=== PATIENT | female | born 1935 | race Caucasian/White ===

== ENCOUNTER → 2017-01-23 | Outpatient (CLI) | payer OTHER ==
[2015-01-23 14:47] VITALS: BP 118/44
[~2017-01-23] MED LIST: ALBU2.5V14 NEB; ALPR0.5T6 PO; CIPR250T30 PO; CITA20TA5 PO; CYAN100T PO; FERR-26 PO; HYDR12.53 PO; LEVO75TA5 PO; LOSA100T6 PO; LOSA1TAB18 PO; MULT1TAB52 PO; NAPR220T70 PO; OMEG1CAP6 PO; PANT20TA2 PO; TACR100O2 TP; WARF-78 PO
--- NOTE | 2017-01-23 12:51 | EKG ---
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
--- NOTE | 2017-01-23 13:26 | RAD ---
EXAM: Chest 2 views. HISTORY: Preoperative risk factors. COMPARISON: 01/05/2015. FINDINGS: Frontal and lateral views of the chest are obtained. There are no confluent infiltrates. There is no pneumothorax or pleural effusion. The heart is not enlarged. Mild opacity at the left heart border is likely an epicardial fat pad. There is a correlate on the prior study given differences in projection. There are atherosclerotic calcifications of the aorta. Eventration of the right hemidiaphragm is noted. IMPRESSION: 1. No confluent infiltrates.
== END | disposition home or self-care (01) ==
LOC: SURGPAT 11:44
PROVIDERS: ATTEND Orthopaedic Surgery
DX: Z01.818 Encounter for other preprocedural examination (principal); I10 Essential (primary) hypertension
CPT/HCPCS: 71020; 87641; 93005

== ENCOUNTER → 2017-04-17 | Outpatient (CLI) | payer OTHER ==
[2015-01-23 14:47] VITALS: BP 118/44
[~2017-04-17] MED LIST changes: -LOSA1TAB18 PO; +LOSA1TAB25 PO; +OMEG100021 PO
== END | disposition home or self-care (01) ==
LOC: SURGPAT 13:39
PROVIDERS: ATTEND Orthopaedic Surgery
DX: M16.11 Unilateral primary osteoarthritis, right hip (principal); Z96.652 Presence of left artificial knee joint
CPT/HCPCS: 87641

== ENCOUNTER 2017-04-25 06:45 | Inpatient (IN) | payer OTHER ==
--- NOTE | 2017-04-24 12:00 | PDOC1 ---
History and Physical Date of Admission Date of Admission DATE: 04/25/17 Identification/Chief Complaint Chief Complaint left knee osteoarthritis pain Problems: Source Source: Chart review History of Present Illness History of Present Illness The patient is a 81 year old female with left knee pain. Her insurance did not authorize her left total knee arthroplasty in January. Since then, she has tried formal physical therapy and another cortisone injection by Dr. Esteban. The patient also has been doing home exercises. She states this helped some but she is still interested in a left total knee arthroplasty, as she is still in a lot of pain. She has a history of a right total knee arthroplasty in January 2015, which she states is her good knee. Past Medical History Cardiovascular: HTN, Hyperlipidemia Psych: Depression Past Surgical History Past Surgical History: Breast Biopsy, Cataract Removal, Hysterectomy Family History Family History: Cancer (breast), Chronic Bronchitis, Diabetes (type 1), Heart Disease, Hypertension, Migranes Social History Smoke: No ALCOHOL: none Drugs: None Current Medications Current Medications Active Scripts Active Reported Fish Oil 1,000 mg Softgel ([place]-3/Dha/Epa/Fish Oil) 1,000 Mg Capsule 2,000 Mg PO Hydrochlorothiazide Capsule (Hydrochlorothiazide) 12.5 Mg Capsule 1 Cap PO QODAY Losartan Potassium 100 Mg Tablet 100 Mg PO DAILY Citalopram Hbr (Citalopram Hydrobromide) 20 Mg Tablet 20 Mg PO DAILY Ferrous Sulfate 325 Mg Tablet 325 Mg PO EVERY DAY LAST DOSE GIVEN: DATE: 01/23 TIME: 9 am NEXT DOSE DUE: DATE: 01/23 TIME: 5 pm with dinner Multivitamins (Multivitamin) 1 Each Tablet 1 Each PO DAILY LAST DOSE GIVEN: DATE: 01/23 TIME: 9 am NEXT DOSE DUE: DATE: 01/24 TIME: 9 am Alprazolam 0.5 Mg Tablet 1 Mg PO HS PRN LAST DOSE GIVEN: DATE: 01/22 TIME: 9 pm NEXT DOSE DUE: DATE: 01/23 TIME: 9 pm Protonix (Pantoprazole Sodium) 20 Mg Tablet.dr 20 Mg PO DAILY LAST DOSE GIVEN: DATE: 01/23 TIME: 9 am NEXT DOSE DUE: DATE: 01/24 TIME: 7 am. Levothyroxine Sodium 75 Mcg Tablet 75 Mcg PO DAILYAC LAST DOSE GIVEN: DATE: 01/23 TIME: 9 am NEXT DOSE DUE: DATE: 01/24 TIME: 6 am Allergies Allergies: Coded Allergies: Jzssrvx-Kvt-Nuq Reductase Inhibitor (Verified Allergy, Intermediate, ) LEG MUSCLE ACHES Physical Exam General: Alert, Oriented X3, Cooperative, No acute distress HEENT: Atraumatic, EOMI Lungs: Clear to auscultation, Normal air movement Heart: RRR Abdomen: Soft Extremities: No clubbing, No cyanosis, Normal pulses, Other (LEFT KNEE: mildly antalgic gait. There is varus alignment. No masses. No detectable effusion. Tenderness on the medial and lateral joint lines. Range of motion is 2-125 degrees. There is crepitus with range of motion, and pain at the extremes of motion. The knee is stable to varus and valgus stress without subluxation or laxity. Muscle strength is normal (5/5) for quadriceps and hamstrings, and muscle tone is normal. The skin is normal with no scars, rashes, lesions or ulcers. Light touch sensation is intact. No edema and no varicosities. Dorsalis pedis pulse is intact and capillary refill is normal. ) Skin: No rashes, No breakdown, No significant lesion Neuro: Normal speech, Sensation intact Psych/Mental Status: Mental status NL, Mood NL Vitals Vitals Vital Signs Date Time Temp Pulse Resp B/P (MAP) Pulse Ox O2 Delivery O2 Flow Rate FiO2 04/17/17 14:14 97.6 68 16 94 97.6 VTE Prophylaxis Ordered VTE Prophylaxis Devices: Yes VTE Pharmacological Prophylaxi: Yes Assessment/Plan Assessment/Plan The patient did not have her total knee arthroplasty authorized in January, as she did not try enough conservative treatment. Since then, she completed formal physical therapy, a home exercise program, and another cortisone injection. Although these did give her some pain relief, she is still having severe pain and would like to proceed with a total knee arthroplasty. Due to her age, I recommended having surgery as soon as possible. We discussed the potential risks of infection, neurovascular injury, bleeding, blood clots, need for revision surgery, or other potential surgical or anesthetic complications. She denies any metal or nickel allergies. She will followup 10-14 days after surgery. LARISSA ANGEL Apr 24, 2017 12:00
[2017-04-25] VITALS (8 sets, daily range): BP systolic 106–141; BP diastolic 59–73
[~2017-04-25] VITALS: Ht 154.9 cm; Wt 89.4 kg
[~2017-04-25 06:45] MED LIST changes: +ACETAMINOPHEN 500 MG TABLET PO PRN; +CELECOXIB 200 MG CAPSULE. PO PRN; +MORPHINE SULFATE 5 MG, KETOROLAC 30 MG, ROPIVacaine 0.5% PF 60 ML, EPINEPHrine 0.5 MG i... INT ART ONE; +TRANEXAMIC ACID 1,000 MG in IV NS 50ML -- 1ST BAG INJ ONE; +VANCOMYCIN 1 GM VIAL. ONE
[2017-04-25] MEDS ORDERED: MORPHINE SULFATE 2 MG/ML DISP.SYRIN. IV PRN ×2 (07:00→12:15)
[2017-04-25] MEDS ORDERED: IV RINGERS,LACTATED 1000ML 1,000 ML IV SCH (07:00)
[2017-04-25] MEDS ORDERED: PROCHLORPERAZINE 10 MG/2 ML VIAL. IV PRN ×2 (07:00→12:15)
[2017-04-25] MEDS ORDERED: fentaNYL PF VIAL 100 MCG/2 ML VIAL IV PRN ×4 (07:00→12:15)
[2017-04-25] MEDS ORDERED: LIDOCAINE 1% PF 2 ML VIAL. ID PRN (07:00)
[2017-04-25] MEDS ORDERED: HYDROmorphone 2 MG/ML VIAL IV PRN (07:00)
[2017-04-25] MEDS ORDERED: CELE200C PO (07:23)
[2017-04-25] MEDS ORDERED: TRANEXAMIC ACID 1,000 MG in IV NS 50ML -- 2ND BAG INJ ONE (08:00)
[2017-04-25] MEDS ORDERED: fentaNYL PF VIAL 100 MCG/2 ML VIAL ONE ×2 (09:33→10:29)
[2017-04-25] MEDS ORDERED: MIDAZOLAM HCL/PF 2 MG/2 ML VIAL. ONE (09:33)
[2017-04-25 10:00] LABS: BILIRUBIN,URINE NEGATIVE (NEG); GLUCOSE,URINE NEGATIVE (NEG); NITRITE,URINE POSITIVE (NEG); PH,URINE 5.5; PROTEIN,URINE NEGATIVE (NEG-TRACE); UROBILINOGEN,URINE 0.2 mg/dL (0.2 mg/dL)
[2017-04-25 10:05] LABS: BACTERIA,URINE MANY /HPF (0-FEW); SQUAMOUS EPITHELIAL CELL,UR FEW /LPF
[2017-04-25 10:06] LABS: RBC,URINE 0 /HPF (0-2)
[2017-04-25] MEDS ORDERED: ONDANSETRON PF 4 MG/2 ML VIAL. ONE (10:06)
[2017-04-25] MEDS ORDERED: LIDOCAINE 2% PF Vial for OR 5 ML VIAL. ONE (10:06)
[2017-04-25] MEDS ORDERED: PROPOFOL 20 ML IV ONE (10:06)
[2017-04-25] MEDS ORDERED: FAMOTIDINE 20 MG/2 ML VIAL ONE (10:06)
[2017-04-25] MEDS ORDERED: DEXAMETHASONE SOD PHOS 20 MG/5 ML VIAL. ONE (10:06)
[2017-04-25] MEDS ORDERED: GLYCOPYRROLATE 1 MG/5 ML VIAL. ONE (10:08)
[2017-04-25] MEDS ORDERED: LABETALOL 20 MG/4 ML DISP.SYRIN. ONE (10:56)
[2017-04-25] MEDS ORDERED: NEOSTIGMINE 10 MG/10 ML VIAL. ONE (11:21)
[2017-04-25] MEDS ORDERED: SEVOFLURANE > 120 MINUTES. IH ONE (11:33)
--- NOTE | 2017-04-25 11:48 | PDOC4 ---
Operative Note Operative Note Date of Procedure: April 25, 2017 Pre-Op Diagnosis: Osteoarthritis left knee Post-Op Diagnosis: Osteoarthritis left knee Procedure: left total knee arthroplasty Surgeon: Quan Guzmán MD Pipe Smoker Machine Operator: Mildred James PA-C Anesthesia: General EBL: 100 mL Specimens Obtained: left knee bone and soft tissue Complications: none Implant Company: [employer] Drains: hemovac plus pain catheter Tourniquet time: 52 Minutes Tourniquet Pressure: 350 mm Hg Indications for Procedure: Arthritis pain unrelieved by nonoperative management. Findings: Severe osteoarthritis with bone on bone contact medially and at the patellofemoral joint Implants used: Size 3 left bicruciate stabilized Journey II BCS cobalt chrome femoral component, size 2 left Journey nonporous tibial baseplate, size 1 -2 18 mm left Journey II BCS XLPE articular insert, 32 mm oval Liz II resurfacing patellar component Procedure in Detail: The patient was identified in the preoperative holding area, and the correct left lower extremity was marked by me. The patient was taken to the operating room where the patient was anesthetized by the Department of Anesthesia. Preoperative antibiotics were given intravenously. Tranexamic acid 1 g was given intravenously for intraoperative hemostasis. A "time-out" procedure was performed. The patient was positioned supine on the operative table with a tourniquet on the upper left thigh. The left lower limb was thoroughly prepped and draped in sterile fashion. An impervious stockinet and adhesive drape were used such that the skin was entirely covered. An Valdivia leg hernandez was used. The operating team wore personal exhaust-ventilated hoods. The limb was elevated to exsanguinate it, and the tourniquet was inflated.. A midline skin incision was made with a scalpel using the patella and tibial tubercle as landmarks. Electrocautery was used for hemostasis. My resident programs assistant used rake retractors. A medial parapatellar arthrotomy incision was used with extension into the distal quadriceps tendon. The patella was retracted laterally and Hohmann retractors were now used by my resident programs assistant. Excess synovium, the menisci, and the cruciate ligaments were resected sharply. The patella was assessed and excess synovium and osteophytes around the patellar articulation were removed. The patella was measured with a caliper, cut freehand with a saw using caliper measurements, sized, and then drilled for an oval three-pegged patella component. Periarticular anesthetic injection was used in the suprapatellar pouch and distal quadriceps muscle. Whitesides's line and the transepicondylar axis were marked on the femur. An intra-medullary 5 degree cutting guide was pinned to the femur, and a distal femoral cut was made with an oscillating saw. An additional 2 mm resection was used due to the deep femoral sulcus, and deficient condyle. My resident programs assistant held Hohmann retractors and an Army-Cedar retractor to protect the medial and lateral collateral ligaments, the patellar tendon, the skin and the other soft tissues. An anterior referencing guide was applied with external rotation of 3 to match Whitesides line. A 5-in-1 Journey II cutting guide was then applied and pinned to the femur. The posterior, anterior, and all chamfer cuts were made with the oscillating saw. An extramedullary guide was pinned to the tibia and rotational alignment and the planned resection thickness assessed. An external alignment shilpa was used to verify the planned cut in the varus-valgus plane and regarding posterior slope referencing the tibial tubercle, the tibial shaft, the ankle joint, and the second metatarsal. The upper tibia was cut made with an oscillating saw. My resident programs assistant held Hohmann retractors and a posterior cruciate ligament retractor to protect the medial and lateral collateral ligaments, the patellar tendon, the skin, the peroneal nerve and the other soft tissues. The upper tibia was sized with a trial baseplate. The posterior compartment was cleared of osteophytes and loose bodies, and posterior capsule released. Periarticular anesthetic injection was used in the posterior compartment. The box cut for a posterior stabilized component was made. A preliminary reduction was performed with a trial femur, trial tibial baseplate and trial polyethylene. Soft-tissue balancing was now performed, and extension and rotation of the alignments was checked using a guide shilpa in the tibial trial and a guide pin in the femur. A medial release was required, using a 10 blade scalpel, and a Natarajan elevator to elevate the medial structures from the upper medial tibia. The stability was assessed using different thicknesses of tibial articular surface to find satisfactory stability and good range of motion. The rotation of the tibial component was marked on the upper tibia. Final trial reduction was now performed verifying patella tracking and tibiofemoral stability and alignment. The tibia preparation was completed with a drill, saw, and fin punch at the previously noted rotation. The final implants were verified and opened. Outer gloves were changed by the operating team. The bone cuts were washed thoroughly with the BizSlate InterPulse device and dried. Two packages of Sandoval + Nephew Rally HV bone cement were mixed in powdered form with 1 gm of Vancomycin, then vacuum-mixed with the monomer, and placed into a cement gun. The cut surfaces of the bone were thoroughly dried with Marquez-tip suction and with laparotomy sponges for cement interdigitation. The final components were cemented into place. The knee was kept at full extension while the cement hardened, and excess cement was removed. Tranexamic acid 1 g was redosed intravenously for additional intraoperative hemostasis. A final periarticular anesthetic injection was used for pain relief. The tourniquet was released, and electrocautery was used for hemostasis. A final check of dehcq-zt-nruprb and stability was made, and the polyethylene implant final size was chosen. The polyethylene implant was secured to the tibial baseplate, and the knee was reduced a final time. Thorough irrigation was used. Hemovac and pain catheter were used.The arthrotomy was closed with interrupted [id number]-[id number] #1 PDS suture. The arthrotomy incision was then run with #1 STRATAFIX Symmetric PDS Plus Knotless suture. The subcutaneous tissues were closed with #2-0 Vicryl by my resident programs assistant. The skin was approximated with STRATAFIX Spiral MONOCRYL Plus Knotless suture by my resident programs assistant. The skin incision was then covered and reinforced with Dermabond Prineo mesh skin closure dressing. A bulky sterile gauze dressing was applied. Needle and sponge counts were correct. There were no apparent complications. The patient returned to the recovery room in stable condition. QUAN GUZMÁN MD Apr 25, 2017 11:48
[2017-04-25] MEDS ORDERED: diphenhydrAMINE 50 MG/ML VIAL IV PRN (12:15)
[2017-04-25] MEDS ORDERED: ZOLPIDEM 5 MG TABLET. PO PRN (12:15)
[2017-04-25] MEDS ORDERED: HYDROcodone/APAP 7.5/325MG 1 TAB TABLET PO PRN (12:15)
[2017-04-25] MEDS ORDERED: MORPHINE SULFATE 10 MG/ML VIAL. IV PRN (12:15)
[2017-04-25] MEDS ORDERED: 0.9 % SODIUM CHLORIDE 10 ML DISP.SYRIN. IV PRN (12:15)
[2017-04-25] MEDS ORDERED: DEXTROSE 50% 25 GM / 50ML DISP.SYRIN. IV PRN (12:15)
[2017-04-25] MEDS ORDERED: traMADol 50 MG TABLET PO PRN ×2 (12:15)
[2017-04-25] MEDS ORDERED: ACETAMINOPHEN 325 MG TABLET. PO PRN (12:15)
[2017-04-25] MEDS ORDERED: HYDROcodone/APAP 10/325 1 TAB TABLET PO PRN (12:15)
[2017-04-25] MEDS ORDERED: PROCHLORPERAZINE 5 MG TABLET. PO PRN (12:15)
[2017-04-25] MEDS ORDERED: MORPHINE SULFATE 4 MG/ML DISP.SYRIN. IV PRN ×2 (12:15)
[2017-04-25] MEDS ORDERED: METOCLOPRAMIDE HCL 10 MG/2 ML VIAL. IV PRN (12:15)
[2017-04-25] MEDS ORDERED: CALCIUM CARBONATE 500 MG TAB.CHEW PO PRN (12:15)
--- NOTE | 2017-04-25 13:17 | RAD ---
Indication: Left knee arthroplasty. Technique: 2 views of the left knee are submitted for review. No comparison is available. Findings: Left knee arthroplasty is noted. Hardware is well seated. There is no perihardware lucency. There is no fracture or dislocation. There is surgical drain and soft tissue gas. There are vascular calcifications. Impression: Left knee arthroplasty without complication.
[2017-04-25] MEDS ORDERED: INSULIN ASPART 100 UNIT/ML 10ML VIAL. SQ ONE ×2 (13:21→13:30)
[2017-04-25] MEDS: IV DEXTROSE 5 %-0.45 % NACL 1,000 ML IV SCH (14:38)
[2017-04-25] MEDS: FERROUS SULFATE 325 MG TABLET. PO SCH (16:57)
[2017-04-25] MEDS: KETOROLAC 30 MG, BUPIVACAINE MPF 0.25% 20 ML, EPINEPHrine 0.5 MG in TOTAL VOLUME SYRING... INT ART SCH (16:57)
[2017-04-25] MEDS: oxyCODONE/APAP 5/325 1 TAB TABLET PO PRN ×2 (16:57→20:46)
[2017-04-25] MEDS: CELECOXIB 200 MG CAPSULE. PO SCH (20:45)
[2017-04-25] MEDS: ASPIRIN ENTERIC COATED 325 MG TABLET.DR. PO SCH (20:46)
[2017-04-25] MEDS: ALPRAZolam 0.5 MG TABLET PO PRN (21:56)
[2017-04-26 03:00] VITALS: BP 124/51
[2017-04-26] MEDS: IV DEXTROSE 5 %-0.45 % NACL 1,000 ML IV SCH (04:00)
[2017-04-26] MEDS: KETOROLAC 30 MG, BUPIVACAINE MPF 0.25% 20 ML, EPINEPHrine 0.5 MG in TOTAL VOLUME SYRING... INT ART SCH (05:56)
[2017-04-26] MEDS ORDERED: MAGNESIUM HYDROXIDE 2,400 MG/30 ML ORAL.SUSP. PO PRN (06:00)
[2017-04-26 07:00] VITALS: BP_SYST 135; BP_SYST 53; BP_DIAS 53
[2017-04-26] MEDS: PANTOPRAZOLE 40 MG TABLET.DR. PO SCH (07:24)
[2017-04-26] MEDS: LEVOTHYROXINE 75 MCG TABLET PO SCH (07:24)
[2017-04-26] MEDS: CITALOPRAM 20 MG TABLET. PO SCH (08:03)
[2017-04-26] MEDS: ASPIRIN ENTERIC COATED 325 MG TABLET.DR. PO SCH ×2 (08:03→21:13)
[2017-04-26] MEDS: SENNOSIDES/DOCUSATE 8.6/50MG TABLET. PO SCH (08:03)
[2017-04-26] MEDS: MULTIVITAMIN with MINERAL TABLET. PO SCH (08:03)
[2017-04-26] MEDS: CELECOXIB 200 MG CAPSULE. PO SCH ×2 (08:03→21:13)
[2017-04-26] MEDS: oxyCODONE/APAP 5/325 1 TAB TABLET PO PRN (08:04)
[2017-04-26] MEDS: FERROUS SULFATE 325 MG TABLET. PO SCH ×2 (08:04→15:57)
[2017-04-26 08:41] LABS: HEMATOCRIT 32.8 % (36.0-47.0); HEMOGLOBIN 10.5 g/dL (12.0-15.5)
[2017-04-26] MEDS: LOSARTAN POTASSIUM 50 MG TABLET. PO SCH (09:00)
[2017-04-26] MEDS: oxyCODONE/APAP 7.5/325 1 TAB TABLET PO PRN ×3 (12:36→19:09)
--- NOTE | 2017-04-26 12:37 | PDOC ---
PROGRESS NOTES Subjective Subjective Pain controlled. No complaints. Objective Vital Signs Vital Signs Date Time Temp Pulse Resp B/P (MAP) Pulse Ox O2 Delivery O2 Flow Rate FiO2 04/26/17 08:04 Room Air 04/26/17 07:00 98.6 73 18 135/53 (80) 95 98.6 04/25/17 15:40 2.0 Physical Exam Dressing intact and dry. Hemovac and pain catheter in place. Thigh and calf soft with a negative Jose's sign. Good active range of motion of foot including dorsiflexion and plantar flexion. No signs of compartment syndrome, DVT or neurovascular injury. Labs Laboratory Tests Test 04/25/17 09:02 04/25/17 09:43 04/25/17 13:11 04/25/17 20:58 Urine Collection Type Unknown Urine Color Yellow Urine Clarity Clear Urine pH 5.5 Urine Specific [place] 1.025 Urine Protein Negative mg/dL (NEG-TRACE) Urine Glucose (UA) Negative mg/dL (NEG) Urine Ketones (Stick) Negative mg/dL (NEG) Urine Blood Negative (NEG) Urine Nitrite Positive (NEG) Urine Bilirubin Negative (NEG) Urine Urobilinogen Dipstick 0.2 mg/dL (0.2 mg/dL) Urine Leukocyte Esterase Small (NEG) Urine RBC 0 /HPF (0-2) Urine WBC 5-10 /HPF (0-4) Urine Squamous Epithelial Cells Few /LPF Urine Bacteria Many /HPF (0-FEW) Urine Hyaline Casts Moderate /HPF Glucose (Fingerstick) 95 mg/dL (70-99) 164 mg/dL (70-99) 172 mg/dL (70-99) Test 04/26/17 06:52 04/26/17 08:30 04/26/17 11:06 Glucose (Fingerstick) 111 mg/dL (70-99) 114 mg/dL (70-99) Hemoglobin 10.5 g/dL (12.0-15.5) Hematocrit 32.8 % (36.0-47.0) Mean Corpuscular Hemoglobin Concent 32 g/dL (31-37) Laboratory Tests Test 04/25/17 13:11 04/25/17 20:58 04/26/17 06:52 04/26/17 08:30 Glucose (Fingerstick) 164 mg/dL (70-99) 172 mg/dL (70-99) 111 mg/dL (70-99) Hemoglobin 10.5 g/dL (12.0-15.5) Hematocrit 32.8 % (36.0-47.0) Mean Corpuscular Hemoglobin Concent 32 g/dL (31-37) Test 04/26/17 11:06 Glucose (Fingerstick) 114 mg/dL (70-99) Imaging Postop X-rays reviewed by me and show satisfactory total knee arthroplasty alignment, without apparent complications. Assessment Assessment POD 1 TKA Problems: Plan Plan of Care Continue POC including DVT prophylaxis and therapy. Dr. Guzmán saw and assessed the patient as well. LARISSA ANGEL Apr 26, 2017 12:37
[2017-04-26 15:00] VITALS: BP 120/60
[2017-04-26] MEDS ORDERED: BISACODYL 10 MG SUPP.RECT. PR PRN (16:00)
[2017-04-26 18:00] VITALS: BP 136/48
[2017-04-26 19:11] VITALS: BP 142/72
[2017-04-26] MEDS: ALPRAZolam 0.5 MG TABLET PO PRN (21:19)
[2017-04-27] MEDS: oxyCODONE/APAP 7.5/325 1 TAB TABLET PO PRN ×4 (02:35→20:49)
[2017-04-27 04:45] LABS: HEMATOCRIT 30.1 % (36.0-47.0); HEMOGLOBIN 9.9 g/dL (12.0-15.5)
[2017-04-27 05:47] VITALS: BP 117/55
[2017-04-27] MEDS: PANTOPRAZOLE 40 MG TABLET.DR. PO SCH (06:01)
[2017-04-27] MEDS: LEVOTHYROXINE 75 MCG TABLET PO SCH (06:01)
--- NOTE | 2017-04-27 08:02 | PDOC ---
PROGRESS NOTES Subjective Subjective Reports being sore this morning. Objective Vital Signs Vital Signs Date Time Temp Pulse Resp B/P (MAP) Pulse Ox O2 Delivery O2 Flow Rate FiO2 04/27/17 05:47 98.3 81 17 117/55 (75) 93 Room Air 98.3 04/25/17 15:40 2.0 Physical Exam Prineo mesh dressing intact with spotty drainage on ABD. Hemovac and pain catheter have been removed. Spotty drainage at drain site. Calf soft with mild tenderness to palpation. Negative Jose's sign. Good dorsiflexion and plantarflexion with no evidence of neurovascular injury. Peripheral pulses and light touch sensation intact. Labs Laboratory Tests Test 04/25/17 09:02 04/25/17 09:43 04/25/17 13:11 04/25/17 20:58 Urine Collection Type Unknown Urine Color Yellow Urine Clarity Clear Urine pH 5.5 Urine Specific [place] 1.025 Urine Protein Negative mg/dL (NEG-TRACE) Urine Glucose (UA) Negative mg/dL (NEG) Urine Ketones (Stick) Negative mg/dL (NEG) Urine Blood Negative (NEG) Urine Nitrite Positive (NEG) Urine Bilirubin Negative (NEG) Urine Urobilinogen Dipstick 0.2 mg/dL (0.2 mg/dL) Urine Leukocyte Esterase Small (NEG) Urine RBC 0 /HPF (0-2) Urine WBC 5-10 /HPF (0-4) Urine Squamous Epithelial Cells Few /LPF Urine Bacteria Many /HPF (0-FEW) Urine Hyaline Casts Moderate /HPF Glucose (Fingerstick) 95 mg/dL (70-99) 164 mg/dL (70-99) 172 mg/dL (70-99) Test 04/26/17 06:52 04/26/17 08:30 04/26/17 11:06 04/26/17 22:08 Glucose (Fingerstick) 111 mg/dL (70-99) 114 mg/dL (70-99) 143 mg/dL (70-99) Hemoglobin 10.5 g/dL (12.0-15.5) Hematocrit 32.8 % (36.0-47.0) Mean Corpuscular Hemoglobin Concent 32 g/dL (31-37) Test 04/27/17 04:35 Hemoglobin 9.9 g/dL (12.0-15.5) Hematocrit 30.1 % (36.0-47.0) Mean Corpuscular Hemoglobin Concent 33 g/dL (31-37) Laboratory Tests Test 04/26/17 08:30 04/26/17 11:06 04/26/17 22:08 04/27/17 04:35 Hemoglobin 10.5 g/dL (12.0-15.5) 9.9 g/dL (12.0-15.5) Hematocrit 32.8 % (36.0-47.0) 30.1 % (36.0-47.0) Mean Corpuscular Hemoglobin Concent 32 g/dL (31-37) 33 g/dL (31-37) Glucose (Fingerstick) 114 mg/dL (70-99) 143 mg/dL (70-99) Assessment Assessment POD #2 left TKA Problems: Plan Plan of Care Continue POC including DVT ppx and therapy. Plan for discharge tomorrow afternoon. The patient has been discussing SNF with social services manager and is deciding between PP and [facility]. LARISSA ANGEL Apr 27, 2017 8:02 am
[2017-04-27] MEDS: FERROUS SULFATE 325 MG TABLET. PO SCH ×2 (08:10→16:49)
[2017-04-27] MEDS: CELECOXIB 200 MG CAPSULE. PO SCH ×2 (08:10→20:49)
[2017-04-27] MEDS: MULTIVITAMIN with MINERAL TABLET. PO SCH (08:10)
[2017-04-27] MEDS: SENNOSIDES/DOCUSATE 8.6/50MG TABLET. PO SCH (08:10)
[2017-04-27] MEDS: CITALOPRAM 20 MG TABLET. PO SCH (08:10)
[2017-04-27] MEDS: ASPIRIN ENTERIC COATED 325 MG TABLET.DR. PO SCH ×2 (08:11→20:49)
[2017-04-27] MEDS: LOSARTAN POTASSIUM 50 MG TABLET. PO SCH (08:14)
[2017-04-27] MEDS ORDERED: hydroCHLOROthiazide 12.5 MG CAPSULE PO SCH (09:00)
--- NOTE | 2017-04-27 13:05 | PATHOLOGY ---
PATHOLOGY REPORT * * * * * * * * FINAL DIAGNOSIS: Segments of bone and soft tissue, left total knee arthroplasty: - Advanced degenerative arthritis. (JPM:mmrhonda; 04/27/2017) REPORT ELECTRONICALLY SIGNED BY: Reji Schreiber M.D. DATE/TIME: 04/27/2017 13:04 * * * * * * * * GROSS PATHOLOGY: Received in formalin labeled "Maddy Bell, left knee tissue," are multiple segments of bone, including tibial plateau, measuring 13.8 x 13.2 x 3.0 cm in aggregate dimensions admixed with soft tissue; meniscus is present. The specimen shows focal eburnation of the articular surfaces. Drag Car Racer sections of bone and soft tissue are submitted in cassette A1, following decalcification. (DAC; 04/26/2017) INITIAL CPT CODE(S): A; 12081, 53844 Professional services [place] [place] [address] Technical services performed by [facility] at [address] [place] [address], [place] [address]. SPECIMEN(S) RECEIVED: A.Left knee tissue CLINICAL HISTORY: Left knee OA PATIENT: MADDY BELL /AGE: 12 1935 (Age: 81) PATIENT #: [id number] ALT CASE #: SPECIMEN COLLECTION DATE: 04/25/2017 SPECIMEN RECEIVED DATE: 04/25/2017 [facility] - [address] [place] [address] - PHONE: [phone] * * * END OF REPORT * * *
[2017-04-27] MEDS ORDERED: POLYETHYLENE GLYCOL 3350 17 GM PACKET. PO PRN (15:45)
[2017-04-27 18:01] VITALS: BP 131/64
[2017-04-28] MEDS: oxyCODONE/APAP 7.5/325 1 TAB TABLET PO PRN ×2 (03:27→09:14)
[2017-04-28 06:05] LABS: HEMATOCRIT 29.6 % (36.0-47.0); HEMOGLOBIN 9.9 g/dL (12.0-15.5)
[2017-04-28] MEDS: LEVOTHYROXINE 75 MCG TABLET PO SCH (06:05)
[2017-04-28] MEDS: PANTOPRAZOLE 40 MG TABLET.DR. PO SCH (06:05)
[2017-04-28 06:07] VITALS: BP 135/68
[2017-04-28 08:00] VITALS: BP 118/57
[2017-04-28] MEDS: SENNOSIDES/DOCUSATE 8.6/50MG TABLET. PO SCH (08:07)
[2017-04-28] MEDS: CITALOPRAM 20 MG TABLET. PO SCH (08:07)
[2017-04-28] MEDS: CELECOXIB 200 MG CAPSULE. PO SCH (08:07)
[2017-04-28] MEDS: MULTIVITAMIN with MINERAL TABLET. PO SCH (08:07)
[2017-04-28] MEDS: ASPIRIN ENTERIC COATED 325 MG TABLET.DR. PO SCH (08:08)
[2017-04-28] MEDS: FERROUS SULFATE 325 MG TABLET. PO SCH (08:08)
[2017-04-28] MEDS: LOSARTAN POTASSIUM 50 MG TABLET. PO SCH (12:26)
--- NOTE | 2017-04-28 14:55 | PDOC ---
PROGRESS NOTES Subjective Subjective Doing well. Planning for discharge later today after PT. Objective Vital Signs Vital Signs Date Time Temp Pulse Resp B/P (MAP) Pulse Ox O2 Delivery O2 Flow Rate FiO2 04/28/17 12:26 84 139/59 04/28/17 09:14 Room Air 04/28/17 06:07 98.8 16 92 98.8 04/27/17 20:23 2.0 Physical Exam Expected swelling. Prineo dressing intact and dry. Calf soft and nontender. Negative Homans. Good AROM ankle. Peripheral pulses and light touch sensation intact. Labs Laboratory Tests Test 04/26/17 22:08 04/27/17 04:35 04/28/17 05:02 Glucose (Fingerstick) 143 mg/dL (70-99) Hemoglobin 9.9 g/dL (12.0-15.5) 9.9 g/dL (12.0-15.5) Hematocrit 30.1 % (36.0-47.0) 29.6 % (36.0-47.0) Mean Corpuscular Hemoglobin Concent 33 g/dL (31-37) 33 g/dL (31-37) Laboratory Tests Test 04/28/17 05:02 Hemoglobin 9.9 g/dL (12.0-15.5) Hematocrit 29.6 % (36.0-47.0) Mean Corpuscular Hemoglobin Concent 33 g/dL (31-37) Assessment Assessment POD 3 TKA Problems: Plan Plan of Care Discharge later today, [facility] Continue DVT prophylaxis and physical therapy. F/U 10-14 days. LARISSA ANGEL Apr 28, 2017 14:55
--- NOTE | 2017-04-28 14:55 | PDOC3 ---
Discharge Summary Visit Information Date of Admission: Apr 25, 2017 Date of Discharge: Apr 28, 2017 Admitting Diagnosis: left knee osteoarthritis pain Brief Hospital Course Allergies Allergies Coded Allergies Type Severity Reaction Last Updated Verified Piufrbz-Crc-Cpx Reductase Inhibitor Allergy Intermediate 04/25/17 Yes Vital Signs Vital Signs Date Time Temp Pulse Resp B/P (MAP) Pulse Ox O2 Delivery O2 Flow Rate FiO2 04/28/17 12:26 84 139/59 04/28/17 09:14 Room Air 04/28/17 06:07 98.8 16 92 98.8 04/27/17 20:23 2.0 Lab Results Laboratory Tests Test 04/26/17 22:08 04/27/17 04:35 04/28/17 05:02 Glucose (Fingerstick) 143 mg/dL (70-99) Hemoglobin 9.9 g/dL (12.0-15.5) 9.9 g/dL (12.0-15.5) Hematocrit 30.1 % (36.0-47.0) 29.6 % (36.0-47.0) Mean Corpuscular Hemoglobin Concent 33 g/dL (31-37) 33 g/dL (31-37) Laboratory Tests Test 04/28/17 05:02 Hemoglobin 9.9 g/dL (12.0-15.5) Hematocrit 29.6 % (36.0-47.0) Mean Corpuscular Hemoglobin Concent 33 g/dL (31-37) Brief Hospital Course 81 year old who presented with knee osteoarthritis, for elective total knee arthroplasty. The patient underwent total knee arthroplasty under general anesthesia the day of admission. Perioperative antibiotics and DVT prophylaxis were used. Postoperatively physical therapy and case management were consulted. The patient progressed and is stable for discharge. Discharge Information Condition at Discharge: Stable Follow Up: Weeks (2) Disposition/Orders: D/C to Another Facility ([facility] of ) Scheduled Celecoxib (Celebrex), 2 CAP PO DAILY, (Reported) Citalopram Hydrobromide (Citalopram Hbr), 20 MG PO DAILY, (Reported) Ferrous Sulfate (Ferrous Sulfate), 325 MG PO EVERY DAY, (Reported) Hydrochlorothiazide (Hydrochlorothiazide Capsule ), 1 CAP PO QODAY, (Reported ) Levothyroxine Sodium (Levothyroxine Sodium), 75 MCG PO DAILYAC, (Reported) Losartan Potassium (Losartan Potassium), 100 MG PO DAILY, (Reported) Multivitamin (Multivitamins), 1 EACH PO DAILY, (Reported) Pantoprazole Sodium (Protonix), 20 MG PO DAILY, (Reported) Scheduled PRN Alprazolam (Alprazolam), 1 MG PO HS PRN for ANXIETY / AGITATION, (Reported) Miscellaneous Medications [place]-3/Dha/Epa/Fish Oil (Fish Oil 1,000 mg Softgel), 2,000 MG PO, (Reported) Patient Instructions Patient Instructions Patient Instructions Continue to WBAT with walker. Keep dressing dry and intact. F/U with [facility] in 10-14 days. Call for appointment. Physical therapy for TKA Continue DVT prophylaxis. LARISSA ANGEL Apr 28, 2017 14:55
[2017-04-28 15:01] VITALS: BP 135/66
== END 2017-04-28 15:25 | DRG 470 ==
LOC: OPSVCIP 06:45 → 4 SOUTHEST 14:13
PROVIDERS: ADMIT Orthopaedic Surgery; ATTEND Orthopaedic Surgery
PROC: 0SRD0J9 Replacement of Left Knee Joint with Synthetic Substitute, Cemented, Open Approach (ICD-10-PCS; principal; 2017-04-25 09:10)
DX: M17.12 Unilateral primary osteoarthritis, left knee (principal); E78.5 Hyperlipidemia, unspecified; F32.9 Major depressive disorder, single episode, unspecified; I10 Essential (primary) hypertension; Z90.710 Acquired absence of both cervix and uterus; Z80.3 Family history of malignant neoplasm of breast; Z82.49 Family history of ischemic heart disease and other diseases of the circulatory system; Z82.5 Family history of asthma and other chronic lower respiratory diseases; Z83.3 Family history of diabetes mellitus
CPT/HCPCS: 36415; 73560; 81001; 82962; 85014; 85018; 86850; 86870; 86900; 86901; 86902; 86922; 87086; 87186; 88305; 88311; C1713; J0171; J0690; J1100; J1815; J1885; J2250; J2270; J2405; J2704; J2710; J2795; J3010; J3370; J3490; J7030; J7120; S0028; 97110; 97116; 97150; 97530; 97535; C1769; J2001

== ENCOUNTER → 2017-12-19 | Outpatient (CLI) | payer OTHER | END | disposition home or self-care (01) | LOC: MRI 14:59 | DX: M51.36 Other intervertebral disc degeneration, lumbar region (principal); M48.07 Spinal stenosis, lumbosacral region; G89.29 Other chronic pain | CPT/HCPCS: 72148 ==

== ENCOUNTER → 2018-03-20 | Outpatient (CLI) | payer OTHER ==
[2018-02-15 10:46] VITALS: BP 174/78
[~2018-03-20] MED LIST changes: -ACETAMINOPHEN 500 MG TABLET PO PRN; +AMOX1TAB10 PO; +CALC3.7S5 NS; +CELE200C PO; -CELECOXIB 200 MG CAPSULE. PO PRN; -CITA20TA5 PO; +CITA20TA6 PO; +DEXA4TAB63 PO; +DOCU-109 PO; -FERR-26 PO; +FERR325T14 PO; +GABA300C8 PO; +IOHEXOL 240 MG/ML 50ML VIAL. PO ONE; +IOHEXOL 300 MG/ML 100ML VIAL. IV ONE; -LOSA100T6 PO; +LOSA100T7 PO; -MORPHINE SULFATE 5 MG, KETOROLAC 30 MG, ROPIVacaine 0.5% PF 60 ML, EPINEPHrine 0.5 MG i... INT ART ONE; +NAPR220C4 PO; +ONDA4TAB10 SL; +PSYL0.5215 PO; +SULF1TAB24 PO; +TIZA2TAB PO; -TRANEXAMIC ACID 1,000 MG in IV NS 50ML -- 1ST BAG INJ ONE; -VANCOMYCIN 1 GM VIAL. ONE
--- NOTE | 2018-03-20 09:48 | KCIC ---
PQRS Compliance Statement: One or more of the following individualized dose reduction techniques were utilized for this examination: 1. Automated exposure control 2. Adjustment of the mA and/or kV according to patient size 3. Use of iterative reconstruction technique CT abdomen/pelvis with contrast 03/20/2018 9:30 AM INDICATION: Right upper quadrant and right lower quadrant pain. Pain and nausea for 4 months. COMPARISON: CT abdomen/pelvis December 26, 2017 TECHNIQUE: Multiple axial CT images of the abdomen and pelvis were obtained after the intravenous administration of 100 mL Omnipaque 300. Coronal and sagittal reformats are provided. FINDINGS: There is subsegmental atelectasis in the right middle lobe. There is a groundglass nodule measuring 5 mm in the right middle lobe. Heart size is within normal limits. Hypoattenuation of the hepatic parenchyma suggestive of underlying hepatic steatosis. No suspicious hepatic lesion is visualized. The spleen is nonenlarged. Adrenal glands are normal in appearance. There is mild fatty atrophy of the pancreas. Gallbladder is present without adjacent inflammatory changes. Abdominal aorta is normal in course and caliber with advanced atherosclerotic calcifications. Moderate calcification is identified involving the proximal superior mesenteric artery. There are no pathologically enlarged lymph nodes in abdomen or pelvis. There is no free fluid or free intraperitoneal air. Simple appearing renal cysts are identified in the left kidney measuring up to 2.1 cm. Simple appearing renal cysts are identified in the right kidney measuring up to 4.5 cm in the lateral midpole. These findings are not significantly changed since the prior examination. The kidneys enhance symmetrically. There is no suspicious renal mass. There is no hydronephrosis. There are no suspected calculi within the kidneys, ureters or urinary bladder. There is moderate sigmoid diverticulosis. No adjacent inflammatory changes are identified. Moderate amount of stool is noted throughout the colon. Oral contrast was administered. Opacified bowel loops demonstrate normal mucosal fold pattern. Small and large bowel are normal in caliber. There is no evidence for bowel obstruction. There are no pericolonic inflammatory changes. A normal, nondilated appendix is visualized without adjacent inflammatory changes. Urinary bladder is within normal limits given degree of distention. No suspicious pelvic mass is identified. Treated chronic compression fractures identified at T10. There is a compression deformity involving T9 with approximately 50 percent height loss, new from prior examination from December 26, 2017. There is no associated retropulsion. IMPRESSION: 1. New compression deformity involving T9 with approximately 50 percent height loss and no significant retropulsion. 2. Treated compression deformity of T10 with 75 percent height loss. Mild retropulsion identified at this level, chronic. 3. New 5 mm groundglass nodule in the right middle lobe is favored to be infectious/inflammatory. 4. Diffuse hepatic steatosis. 5. Moderate sigmoid diverticulosis without adjacent plantar changes. Electronically signed by: Kinza Main MD (03/20/2018 9:44 AM) [email or web address]
== END | disposition home or self-care (01) ==
LOC: KCIC CT 07:59
PROVIDERS: ATTEND Family Medicine
DX: K57.30 Diverticulosis of large intestine without perforation or abscess without bleeding (principal); K76.0 Fatty (change of) liver, not elsewhere classified; R91.1 Solitary pulmonary nodule; M43.8X4 Other specified deforming dorsopathies, thoracic region; I70.0 Atherosclerosis of aorta; I10 Essential (primary) hypertension; E11.9 Type 2 diabetes mellitus without complications; E55.9 Vitamin D deficiency, unspecified; I12.9 Hypertensive chronic kidney disease with stage 1 through stage 4 chronic kidney disease, or unspecified chronic kidney disease; E11.22 Type 2 diabetes mellitus with diabetic chronic kidney disease; N18.3 Chronic kidney disease, stage 3 (moderate); E78.00 Pure hypercholesterolemia, unspecified; K21.9 Gastro-esophageal reflux disease without esophagitis; E03.9 Hypothyroidism, unspecified; Z96.653 Presence of artificial knee joint, bilateral; Z87.440 Personal history of urinary (tract) infections; Z90.710 Acquired absence of both cervix and uterus; Z83.3 Family history of diabetes mellitus; Z82.49 Family history of ischemic heart disease and other diseases of the circulatory system; Z80.3 Family history of malignant neoplasm of breast; Z82.5 Family history of asthma and other chronic lower respiratory diseases
CPT/HCPCS: 74177; Q9966; Q9967

== ENCOUNTER → 2018-03-26 | Outpatient (CLI) | payer OTHER ==
[2018-02-15 10:46] VITALS: BP 174/78
[~2018-03-26] MED LIST changes: +AMLO2.5T3 PO; -IOHEXOL 240 MG/ML 50ML VIAL. PO ONE; -IOHEXOL 300 MG/ML 100ML VIAL. IV ONE; +METF500T16 PO; +POLY17PO29 PO; +TRAM50TA PO; +TRAZ-86 PO
--- NOTE | 2018-03-26 12:31 | RAD ---
MRI Thoracic Spine without contrast History: Worsening chronic pain, history of vertebroplasty Technique: Multiplanar, multi sequential noncontrast MR imaging was performed of the thoracic spine. Contrast: None Comparison: December 27, 2017 Findings: There has been vertebroplasty at T9 as seen previously (previously called T10 although is T9 based on counting from above). There has been development of T8 compression fracture with edema signified by STIR hyperintense and T1 hypointense signal without osseous retropulsion. There is old mild superior endplate conconcavity of T3. Thoracic cord caliber is within normal limits without focal signal abnormality. There is no new significant thoracic spinal stenosis. There are shallow posterior protrusions at T6-T7 and T2-3. There is again some narrowing of the right T9-10 neural foramen. Impression: 1. There has been vertebroplasty at T9 (previously called T10). There is new T8 compression fracture. Electronically signed by: Tarik rFanco MD (03/26/2018 12:28 PM) [email or web address]
== END | disposition home or self-care (01) ==
LOC: MRI 09:58
PROVIDERS: ATTEND Surgery
DX: M48.54XA Collapsed vertebra, not elsewhere classified, thoracic region, initial encounter for fracture (principal); M81.0 Age-related osteoporosis without current pathological fracture; I12.9 Hypertensive chronic kidney disease with stage 1 through stage 4 chronic kidney disease, or unspecified chronic kidney disease; N18.3 Chronic kidney disease, stage 3 (moderate); E11.22 Type 2 diabetes mellitus with diabetic chronic kidney disease; E11.65 Type 2 diabetes mellitus with hyperglycemia; E78.5 Hyperlipidemia, unspecified; E78.00 Pure hypercholesterolemia, unspecified; M16.0 Bilateral primary osteoarthritis of hip; M17.12 Unilateral primary osteoarthritis, left knee; F32.9 Major depressive disorder, single episode, unspecified; K21.9 Gastro-esophageal reflux disease without esophagitis; F41.9 Anxiety disorder, unspecified; Z82.49 Family history of ischemic heart disease and other diseases of the circulatory system; Z80.3 Family history of malignant neoplasm of breast; Z80.9 Family history of malignant neoplasm, unspecified; Z83.3 Family history of diabetes mellitus; Z82.5 Family history of asthma and other chronic lower respiratory diseases; Z90.710 Acquired absence of both cervix and uterus; Z98.49 Cataract extraction status, unspecified eye; Z88.2 Allergy status to sulfonamides; Z88.8 Allergy status to other drugs, medicaments and biological substances
CPT/HCPCS: 72146

== ENCOUNTER 2018-04-03 08:19 | Outpatient (CLI) | payer OTHER ==
[2018-04-03] VITALS (10 sets, daily range): BP systolic 164–196; BP diastolic 59–89
[~2018-04-03] VITALS: Ht 154.9 cm; Wt 83.5 kg
[2018-04-03] MEDS ORDERED: LIDOCAINE WITH 8.4% SOD BICARB 3 ML DISP.SYRIN. ONE ×3 (08:20→10:21)
[2018-04-03] MEDS ORDERED: IOHEXOL 240 MG/ML 50ML VIAL. ONE (08:20)
[2018-04-03 09:05] LABS: BASO # 0.1 x10^3/uL (0.0-0.2); BASO % 1 % (0-3); EOS # 0.6 x10^3/uL (0.0-0.7); EOS % 9 % (0-3); HEMATOCRIT 35.1 % (36.0-47.0); HEMOGLOBIN 11.9 g/dL (12.0-15.5); LYMPH # 1.5 x10^3/uL (1.0-4.8); LYMPH % 24 % (24-48); MEAN CORPUSCULAR HEMOGLOBIN 31 pg (25-35); MEAN CORPUSCULAR HGB CONC 34 g/dL (31-37); MEAN CORPUSCULAR VOLUME 90 fL (79-100); MONO # 0.6 x10^3/uL (0.0-1.1); MONO % 10 % (0-9); NEUT # 3.6 x10^3uL (1.8-7.7); NEUT % 56 % (31-73); PLATELET COUNT 270 x10^3/uL (140-400); RED BLOOD COUNT 3.89 x10^6/uL (3.50-5.40); RED CELL DISTRIBUTION WIDTH 15.3 % (11.5-14.5); WHITE BLOOD COUNT 6.5 x10^3/uL (4.0-11.0)
[2018-04-03 09:16] LABS: PROTHROMBIN TIME PATIENT 12.6 SEC (11.7-14.0)
[2018-04-03] MEDS ORDERED: fentaNYL PF VIAL 100 MCG/2 ML VIAL ONE ×2 (09:31→10:02)
[2018-04-03] MEDS ORDERED: MIDAZOLAM HCL/PF 2 MG/2 ML VIAL. ONE ×2 (09:31→10:02)
[2018-04-03] MEDS ORDERED: fentaNYL PF VIAL 100 MCG/2 ML VIAL IV ONE (10:45)
[2018-04-03] MEDS ORDERED: MIDAZOLAM HCL/PF 2 MG/2 ML VIAL. IV ONE (10:45)
[2018-04-03] MEDS ORDERED: LIDOCAINE WITH 8.4% SOD BICARB 3 ML DISP.SYRIN. IJ ONE (10:45)
--- NOTE | 2018-04-03 13:08 | RAD ---
T8 vertebroplasty 04/03/2018 Indication: T8 compression fracture. Discussion: Patient is an 82-year-old female status post T9 compression fracture with vertebral augmentation tube presents with recurrent mid back pain secondary to T8 compression fracture. Fracture is pathologic secondary to bone demineralization as evidence by mechanism of injury. Patient has persistent pain despite conservative treatment measures. Notably the patient has 11 rib bearing type vertebra. For the purposes of this report the eighth rib bearing vertebral referred to as T8. The risks and benefits of the procedure were discussed the patient. The patient was brought to the fluoroscopy suite and placed in the prone position. A timeout procedure was performed. The posterior thorax prepped and draped using sterile barrier technique. All elements of maximal sterile barrier technique including the use of a cap, mask, sterile gown, sterile gloves, large sterile sheet, appropriate hand hygiene, and 2% chlorhexidine for cutaneous antisepsis (or acceptable alternative antiseptic per current guidelines) were followed for this procedure. The overlying skin and subcutaneous tissues were anesthetized with 1% lidocaine. A trocar needle was introduced into the posterior vertebral body using a left transpedicular approach. A curved cement delivery needle was advanced to the contralateral body. Bone cement was slowly instilled into the vertebral body. Adequate filling of the contralateral vertebral body was noted. Therefore a right transpedicular trocar needle was placed in an essentially identical fashion. A second cement delivery needle was advanced into the right vertebral body. Adequate filling of the vertebral body was then achieved. Some extravasation of cement into the disc space, at T8-T9, large containing cement, was noted. Gifford were removed and manual pressure held to achieve hemostasis. The patient told the procedure well. Sterile dressings were applied. Patient was transferred to the recovery unit in stable condition. Fluoroscopy time: 17.6 minutes Dose area product: [id number] The procedures performed under conscious sedation including continuous cardiopulmonary monitoring via a dedicated sedation nurse. [id number] sedation time: one hour Impression: T8 vertebroplasty
== END 2018-04-03 13:30 | disposition home or self-care (01) ==
LOC: INTRAD 08:19
PROVIDERS: ATTEND Radiology Diagnostic Radiology
DX: S22.060A Wedge compression fracture of T7-T8 vertebra, initial encounter for closed fracture (principal); M54.6 Pain in thoracic spine; Z79.01 Long term (current) use of anticoagulants; Z88.8 Allergy status to other drugs, medicaments and biological substances; X58.XXXA Exposure to other specified factors, initial encounter; Y93.89 Activity, other specified; Y92.89 Other specified places as the place of occurrence of the external cause; Y99.8 Other external cause status
CPT/HCPCS: 22510; 36415; 85025; 85610; 99152; 99153; C1725; C1892; J0690; J2250; J3010

== ENCOUNTER → 2018-06-28 | Outpatient (CLI) | payer OTHER ==
[2018-04-03 12:45] VITALS: BP 172/80
[~2018-06-28] MED LIST changes: +ALPR1TAB6 PO; -AMLO2.5T3 PO; +AMLO2.5T5 PO; -CYAN100T PO; +CYAN100T2 PO; +DOCU100C28 PO; +GABA300C18 PO; -GABA300C8 PO; -HYDR12.53 PO; +HYDR12.575 PO; +LOSA100T14 PO; -LOSA100T7 PO; +OXYB5TAB7 PO; +TRAZ150T49 PO
--- NOTE | 2018-06-28 17:06 | RAD ---
MRI Thoracic Spine without contrast History: Worsening back pain, previous compression fractures Technique: Multiplanar, multi sequential noncontrast MR imaging was performed of the thoracic spine. Comparison: March 26, 2018 Findings: There again has been vertebroplasty at T9, interval vertebroplasty at T8, some residual mild amorphous edema more anteriorly of T8. Vertebral body stature is overall similar, no evidence of new thoracic compression fracture. There is old superior T3 and T1 endplate concavity. Thoracic cord caliber is within normal limits. There could be some subtle T2 hyperintense signal of the cord at T9-10. There is mild osseous retropulsion inferiorly of T9 with mild indentation upon the ventral thecal sac as seen previously, partial effacement of ventral subarachnoid space overall unchanged. There is no new osseous retropulsion of T8. There is again shallow posterior protrusion T6-7, also negligible posterior protrusion T2-3 as seen previously. There is no new significant thoracic spinal stenosis. There is again large hemangioma of the T5 vertebral body. Facet degenerative change and height loss contributes to moderate bilateral T9-10 neural foramina compromise, mild narrowing on the right at T8-T9. As seen at the superior aspect of exam, there is degenerative disc disease and spondylosis and disc osteophyte complex C6-7, central canal stenosis estimated about 6 mm. Impression: 1. There has been interval vertebroplasty at T8, some residual mild amorphous edema more anteriorly of the vertebral body although otherwise vertebral body stature similar, no evidence of new thoracic compression fracture. There is a similar degree of mild osseous retropulsion of T9 with mild indentation upon the ventral thecal sac. There is possible subtle cord signal abnormality T9-T10, could be due to mild cord edema or myelomalacia. There is bilateral T9-T10 neural foramina compromise. 2. As seen at the superior aspect of exam, there is cervical degenerative disc disease and spondylosis, spinal stenosis C6-7 estimated about 6 mm. Electronically signed by: Tarik Franco MD (06/28/2018 5:02 PM) [id number]
== END | disposition home or self-care (01) ==
LOC: MRI 14:45
PROVIDERS: ATTEND Surgery
DX: M50.323 Other cervical disc degeneration at C6-C7 level (principal); M48.02 Spinal stenosis, cervical region; M47.812 Spondylosis without myelopathy or radiculopathy, cervical region; M25.78 Osteophyte, vertebrae; M48.54XD Collapsed vertebra, not elsewhere classified, thoracic region, subsequent encounter for fracture with routine healing; Z98.890 Other specified postprocedural states
CPT/HCPCS: 72146

== ENCOUNTER 2018-10-19 17:20 | Inpatient (IN) | payer OTHER ==
[~2018-10-19] VITALS: Ht 154.9 cm; Wt 89.1 kg
[~2018-10-19 17:20] MED LIST changes: -ALPR1TAB6 PO; -DOCU100C28 PO; -OXYB5TAB7 PO; -TRAZ150T49 PO
[2018-10-19] MEDS ORDERED: IV NORMAL SALINE 1000ML BAG 1,000 ML IV SCH (17:41)
[2018-10-19] MEDS ORDERED: ONDANSETRON PF 4 MG/2 ML VIAL. IV ONE (17:45)
[2018-10-19] MEDS: MORPHINE SULFATE 4 MG/ML VIAL. IV/SQ PRN ×2 (18:00→21:40)
[2018-10-19 18:01] LABS: BASO % 0 % (0-3); EOS # 0.2 x10^3/uL (0.0-0.7); EOS % 2 % (0-3); HEMATOCRIT 38.5 % (36.0-47.0); HEMOGLOBIN 12.7 g/dL (12.0-15.5); LYMPH # 1.1 x10^3/uL (1.0-4.8); LYMPH % 12 % (24-48); MEAN CORPUSCULAR HEMOGLOBIN 28 pg (25-35); MEAN CORPUSCULAR HGB CONC 33 g/dL (31-37); MEAN CORPUSCULAR VOLUME 85 fL (79-100); MONO # 0.6 x10^3/uL (0.0-1.1); MONO % 6 % (0-9); NEUT # 7.4 x10^3uL (1.8-7.7); NEUT % 80 % (31-73); PLATELET COUNT 248 x10^3/uL (140-400); RED BLOOD COUNT 4.53 x10^6/uL (3.50-5.40); RED CELL DISTRIBUTION WIDTH 15.1 % (11.5-14.5); WHITE BLOOD COUNT 9.4 x10^3/uL (4.0-11.0)
[2018-10-19 18:12] LABS: PROTHROMBIN TIME PATIENT 12.5 SEC (11.7-14.0)
[2018-10-19 18:15] LABS: CALCIUM 9.1 mg/dL (8.5-10.1); CREATININE 0.8 mg/dL (0.6-1.0); GFR 68.8; POTASSIUM 4.2 mmol/L (3.5-5.1)
[2018-10-19 18:21] LABS: ALBUMIN 4.1 g/dL (3.4-5.0); ALBUMIN/GLOBULIN RATIO 1.1 (1.0-1.7); TOTAL BILIRUBIN 0.2 mg/dL (0.2-1.0); TOTAL PROTEIN 7.7 g/dL (6.4-8.2)
[2018-10-19] MEDS ORDERED: CONTRAST GIVEN. MC PRN (18:45)
[2018-10-19] MEDS ORDERED: IOHEXOL 300 MG/ML 100ML VIAL. IV ONE ×2 (18:45→20:15)
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
[2018-10-19] MEDS ORDERED: IV NORMAL SALINE 1000ML BAG 1,000 ML IV ONE (20:00)
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
[2018-10-19 20:10] LABS: BILIRUBIN,URINE NEGATIVE (NEG); CLARITY,URINE CLEAR; COLOR,URINE YELLOW; NITRITE,URINE NEGATIVE (NEG); PROTEIN,URINE NEGATIVE (NEG-TRACE); UROBILINOGEN,URINE 0.2 mg/dL (0.2 mg/dL)
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
[2018-10-19 20:16] LABS: BACTERIA,URINE MANY /HPF (0-FEW); RBC,URINE RARE /HPF (0-2); SQUAMOUS EPITHELIAL CELL,UR OCC /LPF
[2018-10-19 20:19] LABS: BARBITURATES NEG (NEG); BENZODIAZEPINES POS (NEG); CANNABINOIDS NEG (NEG); COCAINE NEG (NEG); METHADONE NEG (NEG); OPIATES POS (NEG); PHENCYCLIDINE NEG (NEG)
[2018-10-19 20:20] LABS: AMPHETAMINE/METHAMPHETAMINE NEG (NEG)
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
[2018-10-19] MEDS ORDERED: ONDANSETRON PF 4 MG/2 ML VIAL. IV PRN (23:30)
[2018-10-19 23:50] VITALS: BP 144/61
[2018-10-20] MEDS: fentaNYL PF VIAL 100 MCG/2 ML VIAL IV PRN ×4 (00:38→08:05)
--- NOTE | 2018-10-20 01:00 | NUR ---
ADMIT The patient, MADDY BELL, 83 y/o, F admitted by TAY VIRAMONTES MD, was given written information regarding hospital policies, unit procedures and contact persons. Pt on 2L O2 w/ other VSS, afebrile, and c/o severe pain; pain meds administered. Pt's home meds/allergies verified, admission assessment complete and admit packet reviewed. Pt orientated to unit and plan of care discussed. Pt now resting in bed and call light w/in reach, will continue to monitor.
[2018-10-20 03:00] VITALS: BP 140/56
[2018-10-20] MEDS ORDERED: C.DIFF MED SCREEN BY RX. MC ONE (03:45)
[2018-10-20] MEDS ORDERED: TRAZ150T49 PO (05:36)
[2018-10-20] MEDS ORDERED: ALPR1TAB6 PO (05:36)
[2018-10-20] MEDS ORDERED: TRAM50TA PO (05:36)
[2018-10-20] MEDS ORDERED: PANT20TA2 PO (05:36)
[2018-10-20] MEDS ORDERED: LEVO75TA5 PO (05:36)
[2018-10-20] MEDS ORDERED: OXYB5TAB7 PO (05:36)
[2018-10-20] MEDS ORDERED: CITA20TA6 PO (05:36)
[2018-10-20] MEDS ORDERED: AMLO2.5T5 PO (05:36)
[2018-10-20] MEDS ORDERED: POLY17PO29 PO (05:36)
[2018-10-20] MEDS ORDERED: NAPR220C4 PO (05:36)
[2018-10-20] MEDS ORDERED: DOCU100C28 PO (05:36)
[2018-10-20] MEDS ORDERED: METF500T16 PO (05:36)
[2018-10-20] MEDS ORDERED: LOSA100T14 PO (05:36)
[2018-10-20 07:00] VITALS: BP 146/66
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
--- NOTE | 2018-10-20 09:48 | NUR ---
Pharmacy Medication Review S: Consulted for medication review re: C.diff Risk Assessment score of 4 O: MADDY BELL is a 83 year old with: Previous C.diff infection: No Previous hospitalization: No Recent antibiotics: Within 30 days Use of gastric acid suppressor: Yes Transfer from [place]: No Current antibiotic regimen: None Current acid suppression regimen: Protonix 40mg po daily. A: Patient has been identified as having risk factors for C.diff infection as noted above. P: Antibiotic Regimen recommendation made: No current abx. Probiotic ordered: No PPI changed to [id number]: No active order. Fransisco Torres [facility], 10/20/18 [id number]
[2018-10-20 11:00] VITALS: BP 121/46
[2018-10-20] MEDS ORDERED: POLYETHYLENE GLYCOL 3350 17 GM PACKET. PO SCH (11:00)
[2018-10-20] MEDS ORDERED: traZODone 100 MG TABLET. PO PRN (11:15)
[2018-10-20] MEDS: FAMOTIDINE 20 MG TABLET. PO SCH (12:08)
[2018-10-20] MEDS: OXYBUTYNIN CHLORIDE 5 MG TABLET PO SCH ×2 (12:09→20:23)
[2018-10-20] MEDS: CITALOPRAM 20 MG TABLET. PO SCH (12:10)
[2018-10-20] MEDS: traMADol 50 MG TABLET PO PRN ×2 (12:11→20:23)
--- NOTE | 2018-10-20 14:48 | EKG ---
[facility] [address] [place] [address] Test Date: 2018-10-19 Test Time: 17:57:45 Pat Name: MADDY BELL Department: Room: 434 1 Gender: F Sandwich Hand: : 1935 Requested By: YONATHAN REA Order Number: [id number] Reading MD: Greyson Ballard Measurements Intervals [place] Rate: 79 P: 41 [place]: 170 QRS: -13 QRSD: 92 T: 76 QT: 406 QTc: 472 Interpretive Statements SINUS RHYTHM LEFTWARD AXIS QRS(T) CONTOUR ABNORMALITY CONSIDER ANTEROSEPTAL MYOCARDIAL DAMAGE POSSIBLY ABNORMAL ECG Electronically Signed On 10-29-2018 12:34:24 CDT by Greyson Ballard
[2018-10-20 15:00] VITALS: BP 148/61
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
[2018-10-20] MEDS: LEVOTHYROXINE 75 MCG TABLET PO SCH (15:30)
[2018-10-20] MEDS: amLODIPine BESYLATE 5 MG TABLET PO SCH (17:03)
[2018-10-20] MEDS: LOSARTAN POTASSIUM 50 MG TABLET. PO SCH (17:03)
[2018-10-20 19:15] VITALS: BP 154/76
[2018-10-20] MEDS: DOCUSATE SODIUM 100 MG CAPSULE. PO SCH (20:23)
[2018-10-20] MEDS: ALPRAZolam 1 MG TABLET PO SCH (20:25)
[2018-10-20 23:06] VITALS: BP 145/67
[2018-10-21] MEDS ORDERED: fentaNYL PF VIAL 100 MCG/2 ML VIAL IV ONE
[2018-10-21 03:30] VITALS: BP 148/69
[2018-10-21] MEDS: traMADol 50 MG TABLET PO PRN ×3 (04:41→20:04)
[2018-10-21 07:00] VITALS: BP 155/70
[2018-10-21] MEDS: LEVOTHYROXINE 75 MCG TABLET PO SCH (07:15)
[2018-10-21] MEDS: NAPROXEN 250 MG TABLET PO PRN ×2 (07:16→23:03)
[2018-10-21] MEDS: FAMOTIDINE 20 MG TABLET. PO SCH (08:29)
[2018-10-21] MEDS: OXYBUTYNIN CHLORIDE 5 MG TABLET PO SCH ×2 (08:29→20:03)
[2018-10-21] MEDS: CITALOPRAM 20 MG TABLET. PO SCH (08:29)
[2018-10-21] MEDS: amLODIPine BESYLATE 5 MG TABLET PO SCH (08:30)
[2018-10-21] MEDS: LOSARTAN POTASSIUM 50 MG TABLET. PO SCH (08:30)
[2018-10-21 11:00] VITALS: BP 123/62
--- NOTE | 2018-10-21 12:28 | NUR ---
Paged MD for orders for CXR, and pain management PO. This nurse will continue to monitor.
[2018-10-21 16:09] VITALS: BP 128/53
[2018-10-21] MEDS: IPRATRPIUM/ALBUTEROL 0.5/2.5MG 3 ML NEBU. NEB SCH ×2 (16:44→20:48)
[2018-10-21 19:00] VITALS: BP 127/57
[2018-10-21] MEDS: POLYETHYLENE GLYCOL 3350 17 GM PACKET. PO SCH (20:01)
[2018-10-21] MEDS: ALPRAZolam 0.5 MG TABLET PO PRN (20:02)
[2018-10-21] MEDS: DOCUSATE SODIUM 100 MG CAPSULE. PO SCH (20:03)
[2018-10-21] MEDS: ALPRAZolam 1 MG TABLET PO SCH (20:05)
[2018-10-21 23:00] VITALS: BP 150/57
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
[2018-10-22 03:00] VITALS: BP 115/58
[2018-10-22] MEDS: traMADol 50 MG TABLET PO PRN ×2 (03:48→11:28)
[2018-10-22] MEDS: LEVOTHYROXINE 75 MCG TABLET PO SCH (05:29)
[2018-10-22 07:00] VITALS: BP 154/59
[2018-10-22] MEDS: CITALOPRAM 20 MG TABLET. PO SCH (08:20)
[2018-10-22] MEDS: OXYBUTYNIN CHLORIDE 5 MG TABLET PO SCH ×2 (08:23→20:30)
[2018-10-22] MEDS: metFORMIN 500 MG TABLET PO SCH (08:23)
[2018-10-22] MEDS: LOSARTAN POTASSIUM 50 MG TABLET. PO SCH (08:23)
[2018-10-22] MEDS: FAMOTIDINE 20 MG TABLET. PO SCH (08:24)
[2018-10-22] MEDS: amLODIPine BESYLATE 5 MG TABLET PO SCH (08:24)
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
[2018-10-22] MEDS: NAPROXEN 250 MG TABLET PO PRN ×2 (08:29→17:10)
[2018-10-22] MEDS: IPRATRPIUM/ALBUTEROL 0.5/2.5MG 3 ML NEBU. NEB SCH ×4 (08:33→21:10)
[2018-10-22] MEDS: LIDOCAINE (700MG/PATCH) PATCH. TD SCH (09:27)
--- NOTE | 2018-10-22 10:13 | NUR ---
NIYAH following for discharge planning. Discussed with RN, pt is from home. SW met with pt to discuss PT/OT recommendation of SNU at discharge. Pt is agreeable and would like referral sent to [facility] (ph: [phone], fax: [phone]) as she has been there before. SW faxed referral, insurance will need to authorize. Pt advised she would inform her family. RN notified, NIYAH will continue to follow.
[2018-10-22 11:00] VITALS: BP 131/60
--- NOTE | 2018-10-22 14:00 | NUR ---
SW following. [facility], pending insurance auth. NIYAH will continue to follow. RN notified.
[2018-10-22 15:00] VITALS: BP 139/58
[2018-10-22] MEDS: oxyCODONE/APAP 7.5/325 1 TAB TABLET PO PRN (17:38)
[2018-10-22] MEDS ORDERED: DOCUSATE SODIUM 100 MG CAPSULE. PO PRN (17:45)
[2018-10-22] MEDS ORDERED: POLYETHYLENE GLYCOL 3350 17 GM PACKET. PO PRN (17:45)
[2018-10-22 19:00] VITALS: BP 129/69
[2018-10-22] MEDS: POLYETHYLENE GLYCOL 3350 17 GM PACKET. PO SCH (20:30)
[2018-10-22] MEDS: DOCUSATE SODIUM 100 MG CAPSULE. PO SCH (20:30)
[2018-10-22] MEDS: PATCH REMOVAL. MC SCH (20:30)
[2018-10-22] MEDS: ALPRAZolam 0.5 MG TABLET PO PRN (20:34)
[2018-10-22 23:00] VITALS: BP 130/57
[2018-10-23] MEDS: oxyCODONE/APAP 7.5/325 1 TAB TABLET PO PRN ×4 (02:52→23:21)
[2018-10-23 03:00] VITALS: BP 133/57
[2018-10-23] MEDS: LEVOTHYROXINE 75 MCG TABLET PO SCH (06:35)
[2018-10-23 07:00] VITALS: BP 143/62
[2018-10-23] MEDS: IPRATRPIUM/ALBUTEROL 0.5/2.5MG 3 ML NEBU. NEB SCH ×4 (07:38→20:21)
--- NOTE | 2018-10-23 08:16 | PDOC ---
Provider Note Provider Note vss, better pain control re perc- await rehab, dc when available TAY VIRAMONTES MD Oct 23, 2018 08:16
--- NOTE | 2018-10-23 08:41 | NUR ---
SW following. Discussed with RN, waiting on insurance auth for pt to go to [facility], pt possibly needing a 6 minute walk today. SW will continue to follow.
[2018-10-23 11:05] VITALS: BP 151/61
[2018-10-23] MEDS: CITALOPRAM 20 MG TABLET. PO SCH (11:16)
[2018-10-23] MEDS: metFORMIN 500 MG TABLET PO SCH (11:16)
[2018-10-23] MEDS: LOSARTAN POTASSIUM 50 MG TABLET. PO SCH (11:17)
[2018-10-23] MEDS: FAMOTIDINE 20 MG TABLET. PO SCH (11:17)
[2018-10-23] MEDS: OXYBUTYNIN CHLORIDE 5 MG TABLET PO SCH ×2 (11:18→20:43)
[2018-10-23] MEDS: amLODIPine BESYLATE 5 MG TABLET PO SCH (11:20)
[2018-10-23] MEDS: LIDOCAINE (700MG/PATCH) PATCH. TD SCH (11:28)
[2018-10-23 15:34] VITALS: BP 118/54
[2018-10-23 19:00] VITALS: BP 132/53
[2018-10-23] MEDS: POLYETHYLENE GLYCOL 3350 17 GM PACKET. PO SCH (20:42)
[2018-10-23] MEDS: ALPRAZolam 0.5 MG TABLET PO PRN (20:43)
[2018-10-23] MEDS: DOCUSATE SODIUM 100 MG CAPSULE. PO SCH (20:43)
[2018-10-23] MEDS: PATCH REMOVAL. MC SCH (20:44)
[2018-10-23 23:00] VITALS: BP 148/67
[2018-10-24 03:00] VITALS: BP 136/57
[2018-10-24] MEDS: LEVOTHYROXINE 75 MCG TABLET PO SCH (05:43)
[2018-10-24] MEDS: oxyCODONE/APAP 7.5/325 1 TAB TABLET PO PRN ×4 (05:43→22:53)
[2018-10-24 07:00] VITALS: BP 149/64
[2018-10-24] MEDS: IPRATRPIUM/ALBUTEROL 0.5/2.5MG 3 ML NEBU. NEB SCH (07:31)
--- NOTE | 2018-10-24 08:37 | PDOC ---
Provider Note Provider Note no change, pain ok w/ perc- await transfer ,dc O2 to see result- dc mehdi at her request [id number] TAY VIRAMONTES MD Oct 24, 2018 08:37
--- NOTE | 2018-10-24 09:37 | NUR ---
SW following for discharge planning. Discussed with RN, insurance has approved for pt to go to [facility]. SW awaiting discharge paperwork to set up transportation. RN notified.
[2018-10-24 11:00] VITALS: BP 139/64
[2018-10-24] MEDS: CITALOPRAM 20 MG TABLET. PO SCH (11:30)
[2018-10-24] MEDS: metFORMIN 500 MG TABLET PO SCH (11:31)
[2018-10-24] MEDS: LOSARTAN POTASSIUM 50 MG TABLET. PO SCH (11:31)
[2018-10-24] MEDS: OXYBUTYNIN CHLORIDE 5 MG TABLET PO SCH ×2 (11:34→21:04)
[2018-10-24] MEDS: FAMOTIDINE 20 MG TABLET. PO SCH (11:34)
[2018-10-24] MEDS: LIDOCAINE (700MG/PATCH) PATCH. TD SCH (11:35)
[2018-10-24] MEDS: amLODIPine BESYLATE 5 MG TABLET PO SCH (11:35)
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
[2018-10-24 15:00] VITALS: BP 164/58
--- NOTE | 2018-10-24 15:13 | NUR ---
SW following. Pt cannot discharge to [facility] without the discharge paperwork written by the doctor with RESIDENTIAL LESS THAN 30 DAYS: YES. Pt also needs scripts for pain medication and psych meds. RN notified. Discharge hopefully tomorrow (10/25/18). Pt choice and rights letter signed and placed on chart. SW will continue to follow.
[2018-10-24 19:00] VITALS: BP 114/69
--- NOTE | 2018-10-24 20:53 | NUR ---
Telephone orders for discharge received from , however no hard script for pain medication in pt's chart, required per protocol to be sent to facility, therefore pt could not be DC'd. Lab called at 1345 with a critical urine culture, this nurse called and informed him pt's final result of Morganella morganii, 100,000 colony forming units per mL multi-drug resistant organism, no new orders received.
[2018-10-24] MEDS: PATCH REMOVAL. MC SCH (21:00)
[2018-10-24] MEDS: POLYETHYLENE GLYCOL 3350 17 GM PACKET. PO SCH (21:00)
[2018-10-24] MEDS: ALPRAZolam 0.5 MG TABLET PO PRN (21:05)
[2018-10-24 23:00] VITALS: BP 162/63
[2018-10-25 03:00] VITALS: BP 144/62
[2018-10-25] MEDS: oxyCODONE/APAP 7.5/325 1 TAB TABLET PO PRN ×2 (04:23→10:39)
[2018-10-25] MEDS: LEVOTHYROXINE 75 MCG TABLET PO SCH (05:01)
[2018-10-25 07:00] VITALS: BP 120/61
--- NOTE | 2018-10-25 08:42 | PDOC ---
Provider Note Provider Note script written, no change in status, dc done TAY VIRAMONTES MD Oct 25, 2018 08:42
[2018-10-25] MEDS: metFORMIN 500 MG TABLET PO SCH (09:00)
[2018-10-25] MEDS: FAMOTIDINE 20 MG TABLET. PO SCH (09:00)
[2018-10-25] MEDS: OXYBUTYNIN CHLORIDE 5 MG TABLET PO SCH (09:00)
[2018-10-25] MEDS: CITALOPRAM 20 MG TABLET. PO SCH (09:01)
[2018-10-25] MEDS: amLODIPine BESYLATE 5 MG TABLET PO SCH (09:02)
[2018-10-25] MEDS: LOSARTAN POTASSIUM 50 MG TABLET. PO SCH (09:06)
[2018-10-25] MEDS: LIDOCAINE (700MG/PATCH) PATCH. TD SCH (09:12)
[2018-10-25 11:00] VITALS: BP 126/75
--- NOTE | 2018-10-25 14:45 | NUR ---
Discharge to [facility] by eugenia varghese. Accompanied by daughter. Report called and spoke with Yue LARSON.
== END 2018-10-25 14:45 | DRG 185 ==
LOC: ER 17:20 → 4 NORTH 10-20 00:01
PROVIDERS: ADMIT Family Medicine; ATTEND Family Medicine
DX: S22.42XA Multiple fractures of ribs, left side, initial encounter for closed fracture (principal); E03.9 Hypothyroidism, unspecified; I10 Essential (primary) hypertension; S13.4XXA Sprain of ligaments of cervical spine, initial encounter; Z96.659 Presence of unspecified artificial knee joint; S60.511A Abrasion of right hand, initial encounter; R09.02 Hypoxemia; G89.29 Other chronic pain; K21.9 Gastro-esophageal reflux disease without esophagitis; V89.2XXA Person injured in unspecified motor-vehicle accident, traffic, initial encounter; Y92.488 Other paved roadways as the place of occurrence of the external cause; Z87.440 Personal history of urinary (tract) infections; Y93.89 Activity, other specified; Y99.8 Other external cause status; Z90.710 Acquired absence of both cervix and uterus
CPT/HCPCS: 36415; 70450; 71045; 71260; 72125; 72128; 73590; 74177; 80053; 80307; 81001; 82962; 83605; 85025; 85610; 85730; 86850; 86870; 86900; 86901; 87086; 87186; 93005; 94640; 94760; 96361; 96374; G0480; J2270; J2405; J3010; J7030; J7620; Q9967; 97110; 97116; 97530; 97535; 99285-25

== ENCOUNTER → 2018-12-26 | Outpatient (CLI) | payer OTHER ==
[~2018-12-26] MED LIST changes: +ALPR1TAB6 PO; +DOCU100C28 PO; +OXYB5TAB7 PO; +TRAZ150T49 PO
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
== END | disposition home or self-care (01) ==
LOC: KCIC 12:22
PROVIDERS: ATTEND Family Medicine
DX: R06.02 Shortness of breath (principal); R09.02 Hypoxemia; M48.54XA Collapsed vertebra, not elsewhere classified, thoracic region, initial encounter for fracture
CPT/HCPCS: 71046

== ENCOUNTER 2019-01-04 12:12 | Emergency (ER) | payer OTHER ==
[~2019-01-04] VITALS: Ht 162.6 cm; Wt 88.9 kg
[2019-01-04 13:30] VITALS: BP 143/43
[2019-01-04] MEDS ORDERED: HYDROcodone/APAP 10/325 1 TAB TABLET PO ONE (13:30)
[2019-01-04] MEDS ORDERED: MAGNESIUM CITRATE 296 ML SOLUTION. PO ONE ×2 (13:30→15:00)
--- NOTE | 2019-01-04 14:17 | RAD ---
Examination: CT lumbar spine without contrast HISTORY: History of low back pain COMPARISON: 10/19/2018 TECHNIQUE: Axial CT images of the lumbar spine was performed without contrast. Coronal and sagittal reformats are performed. Exposure: One or more of the following individualized dose reduction techniques were utilized for this examination: 1. Automated exposure control 2. Adjustment of the mA and/or kV according to patient size 3. Use of iterative reconstruction technique FINDINGS: The lumbar vertebral body heights are maintained. L1-L2: Mild diffuse disc bulge identified causing mild spinal canal stenosis and mild bilateral neural foraminal narrowing. L2-L3: Mild diffuse disc bulge identified causing moderate spinal canal stenosis. Mild bilateral neural foraminal narrowing L3-L4: Diffuse disc bulge causing severe spinal canal stenosis. Mild to moderate bilateral neural foraminal narrowing L4-L5: Diffuse disc bulge causing severe spinal stenosis. Moderate bilateral neural foraminal narrowing. L5-S1: Diffuse disc bulge identified causing severe spinal canal stenosis. Moderate bilateral neural foraminal narrowing, left greater than right. Severe aortic atherosclerosis. Impression: Multilevel degenerative changes lumbar spine particularly at L4-L5, L5-S1 vertebral levels. Electronically signed by: French Bloom MD (01/04/2019 2:14 PM) [facility]
[2019-01-04] MEDS ORDERED: HYDR-3164 PO (14:57)
--- NOTE | 2019-01-04 14:57 | PHYS DOC ---
Past Medical History Past Medical History: GERD, Hypertension, Hypothyroid, UTI Additional Past Medical Histor: tens unit for chronic pain Past Surgical History: Hysterectomy, Knee Replacement Additional Past Surgical Histo: Right Breast Biopsy Alcohol Use: None Drug Use: None Adult General Chief Complaint Chief Complaint: ABDOMINAL PAIN HPI HPI Patient is a 83 year old female who presents the ER for evaluation. Contrary to triage note patient denies any abdominal pain. Patient reports chronic back pain reports increased back pain over the last 2-3 days. Reports history of vertebral compression fractures in the past have responded kyphoplasty. Previous fractures were not related to trauma were spontaneous. Denies any recent trauma. Reports no pain at rest but has left lower back pain with movement and ambulation. Was able to ambulate and perform ADLs at home. Her primary care doctor called in a prescription for pain medication unsure of its type that she was unable to afford it. Patient has follow-up early next week with her primary care elizabeth patel. No loss of bowel or bladder control. No saddle anesthesia. Patient also reports hesitance to take narcotics secondary to current constipation. States last bowel movement was 4-5 days ago. Takes MiraLAX daily but not having any response. Passing Flatau's. No nausea. No vomiting. No abdominal pain. No dysuria. When present pain is with movement, sharp, 7-8 out of 10. Review of Systems Review of Systems Constitutional: Denies fever or chills [] Eyes: Denies change in visual acuity, redness, or eye pain [] HENT: Denies nasal congestion or sore throat [] Respiratory: Denies cough or shortness of breath [] Cardiovascular: No chest pain, no palpitations, no lower extremity edema. GI: Denies abdominal pain, nausea, vomiting, bloody stools or diarrhea [] : Denies dysuria or hematuria [] Musculoskeletal: Back pain present, Integument: Denies rash or skin lesions [] Neurologic: Denies headache, focal weakness or sensory changes [] Endocrine: Denies polyuria or polydipsia [] All other systems were reviewed and found to be within normal limits, except as documented in this note. Current Medications Current Medications Current Medications Medications (Trade) Dose Ordered Sig/Bessy Start Time Stop Time Status Last Admin Dose Admin Acetaminophen/ Hydrocodone Bitart (Lortab 10/325) 1 tab 1X ONCE 01/04/19 13:30 01/04/19 13:39 DC 01/04/19 14:12 1 TAB Magnesium Citrate (Citroma) 296 ml 1X ONCE 01/04/19 15:00 01/04/19 15:01 DC 01/04/19 15:15 296 ML Ondansetron HCl (Zofran Odt) 4 mg 1X ONCE 01/04/19 15:15 01/04/19 15:16 DC 01/04/19 15:15 4 MG Allergies Allergies Allergies Coded Allergies Type Severity Reaction Last Updated Verified Wmshtgt-Mzl-Shr Reductase Inhibitor Allergy Intermediate 04/25/17 Yes Physical Exam Physical Exam Constitutional: obese, no distress, nontoxic appearing. [] HENT: Normocephalic, atraumatic, Eyes: PERRLA, EOMI, Neck: Normal range of motion, no tenderness, supple, no stridor. [] Cardiovascular:Heart rate regular rhythm, no murmur [] Lungs & Thorax: Bilateral breath sounds clear to auscultation [] Abdomen: Bowel sounds normal, soft, no tenderness, no masses, no pulsatile masses. Obese [] Skin: Warm, dry, no erythema, no rash. [] Back: Mild limitation range of motion secondary to body habitus and pain. No midline spinal tenderness. Moderate left paraspinal tenderness in L3-L5 region., Positive left straight leg exam. Extremities: ROM intact, no edema. [] Neurologic: Alert and oriented X 3, no focal deficits noted. [] Psychologic: Affect normal, judgement normal, mood normal. [] Current Patient Data Vital Signs Vital Signs Date Time Temp Pulse Resp B/P (MAP) Pulse Ox O2 Delivery O2 Flow Rate FiO2 01/04/19 14:12 Room Air 01/04/19 13:30 70 143/43 (76) 92 2.0 01/04/19 12:55 98.4 18 98.4 EKG EKG [] Radiology/Procedures Radiology/Procedures Lumbar CT Impression: Multilevel degenerative changes lumbar spine particularly at L4-L5, L5-S1 vertebral levels.[] Course & Med Decision Making Course & Med Decision Making Pertinent Labs and Imaging studies reviewed. (See chart for details) []1618: Patient has tolerated hydrocodone 7 the past. Patient significantly improved after Bib 10 mg. Patient up walking to the bathroom without any difficulty. Patient given Maxide trach urine advised to increase intake of MiraLAX to improve constipation. Patient continues to have no abdominal pain. Patient is requesting discharge. Patient does not have any acute fractures on CT and does not have any midline spinal tenderness. Will provide a short Rx for hydrocodone as patient was unable to get her primary care's prescription unfilled for unknown reasons.. Discussed supportive care and advised follow-up with primary care physician. ER return precautions given. Patient verbalized understanding. All questions answered. Dragon Disclaimer Dragon Disclaimer This electronic medical record was generated, in whole or in part, using a voice recognition dictation system. Departure Departure Impression: Primary Impression: Back pain Additional Impression: Constipation Disposition: HOME, SELF-CARE Condition: IMPROVED Referrals: ELDON SIERRA MD (PCP) Patient Instructions: Back Pain, Adult, Constipation, Adult Additional Instructions: Thank you for coming to [facility]. Please read the attached handouts. Please follow-up with your primary care physician. Return to the ER if your symptoms worsen or you have any other concerns. Please take the prescribed medication for uncontrolled pain. Please follow-up with her primary care doctor on Monday. Continue MiraLAX for constipation. Scripts Hydrocodone/Apap 5-325 (NORCO 5-325 TABLET) 1 Each Tablet 1-2 EACH PO PRN Q6HRS PRN for PAIN, #15 as needed for pain Prov: XIN AMARAL DO 01/04/19 Problem Qualifiers XIN AMARAL DO Jan 04, 2019 14:57
[2019-01-04] MEDS ORDERED: ONDANSETRON ODT 4 MG TAB.RAPDIS. PO ONE (15:15)
== END 2019-01-04 15:23 | disposition home or self-care (01) ==
LOC: ER 12:12
DX: M54.5 Low back pain (principal); G89.29 Other chronic pain; K59.00 Constipation, unspecified; K21.9 Gastro-esophageal reflux disease without esophagitis; I10 Essential (primary) hypertension; E03.9 Hypothyroidism, unspecified; Z90.710 Acquired absence of both cervix and uterus; Z96.659 Presence of unspecified artificial knee joint; Z88.8 Allergy status to other drugs, medicaments and biological substances
CPT/HCPCS: 72131; 99284; Q0162

== ENCOUNTER → 2019-02-11 | Outpatient (CLI) | payer OTHER ==
[2019-01-16 09:03] VITALS: BP 122/68
[~2019-02-11] MED LIST changes: +HYDR-3164 PO; -TIZA2TAB PO; +TIZA2TAB2 PO
--- NOTE | 2019-02-11 16:31 | KCIC ---
LUMBAR SPINE WO CONTRAST History: Spinal stenosis neurogenic claudication. Unsteady gait. Technique: Multiplanar, multi sequential MR imaging was performed of the lumbar spine. Comparison: October 19, 2018 CT and January 04, 2019 CT. Lumbar spine MRI December 19, 2017. Findings: Acute L1 vertebral body fracture involving the anterior posterior cortex with approximately 50 percent height loss. Mild retropulsion contributing to mild canal narrowing and cord flattening. No additional fracture. Conus terminates at the normal location. No evidence of nerve root clumping. Bilateral renal cysts. L1-L2: Disc height loss. Posterior disc bulge. Mild facet arthropathy. No canal or neuroforaminal narrowing. L2-L3: Small posterior disc bulge. Mild facet arthropathy. No canal or neuroforaminal narrowing. L3-L4: Small posterior disc bulge. Central annular fissure. Moderate facet arthropathy. Ligamentum flavum thickening. Mild to moderate canal narrowing. No neuroforaminal narrowing. L4-L5: Left hemilaminectomy postoperative changes. Broad-based posterior disc bulge eccentric to the right. Advanced facet arthropathy, right greater than left. Moderate to severe right subarticular recess narrowing. No canal narrowing. Moderate right neural foraminal narrowing. Mild left neural foraminal narrowing. L5-S1: Small posterior disc bulge. Advanced facet arthropathy. Bilateral subarticular recess narrowing. Minimal canal narrowing. Moderate bilateral neural foraminal narrowing. Results discussed with Dr. Solano's office at 4:25 PM on 02/11/2019. Impression: 1. Acute L1 vertebral body fracture with mild retropulsion contributing to mild canal narrowing and cord flattening. 2. Multilevel lumbar spondylosis most prominent L3-L4, L4-L5 and L5-S1. 3. L3-L4 canal narrowing, unchanged. 4. L4-L5 right subarticular recess narrowing with compression of the descending right L5 nerve root, unchanged. Correlate for right L5 radiculopathy. 5. L5-S1 moderate bilateral neural foraminal narrowing, unchanged. Electronically signed by: Damian Sherman DO (02/11/2019 4:28 PM) [facility]
== END | disposition home or self-care (01) ==
LOC: KCIC MRI 14:35
PROVIDERS: ATTEND Family Medicine
DX: M47.817 Spondylosis without myelopathy or radiculopathy, lumbosacral region (principal); M48.062 Spinal stenosis, lumbar region with neurogenic claudication; M48.56XA Collapsed vertebra, not elsewhere classified, lumbar region, initial encounter for fracture; M48.08 Spinal stenosis, sacral and sacrococcygeal region; M12.88 Other specific arthropathies, not elsewhere classified, other specified site; N28.1 Cyst of kidney, acquired
CPT/HCPCS: 72148